=== PATIENT | male | born 1965 ===

== ENCOUNTER 2020-10-08 12:25 | Emergency (ER) | payer SELFPAY ==
[2020-10-08] MEDS ORDERED: Lactated Ringers 1,000 ML IV ONE ×2 (13:18→14:22)
[2020-10-08] MEDS ORDERED: Ketorolac 30 MG/ML SDV IVPUSH ONE (13:18)
[2020-10-08] MEDS ORDERED: Ondansetron 4 MG/2 ML SDV IV ONE (13:18)
[2020-10-08] MEDS ORDERED: Sodium Chloride 0.9% 10 ML Syringe FLUSH PRN (13:18)
[2020-10-08] MEDS ORDERED: Dicyclomine 20 MG/2 ML SDV IM ONE (13:19)
[2020-10-08 13:23] LABS: ANION GAP 16.7 mEq/L (7-13); CHLORIDE,CL 103 mmol/L (98-107); SODIUM,NA 142 mmol/L (136-145)
--- NOTE | 2020-10-08 13:24 | EDM.PDOC ---
ED HPI GENERAL MEDICAL PROBLEM - General Chief Complaint: Gastrointestinal Problem Stated Complaint: VOMITING Time Seen by Provider: 10/08/20 13:10 Source of Information: Reports: Patient History Limitations: Reports: No Limitations - History of Present Illness INITIAL COMMENTS - FREE TEXT/NARRATIVE: Patient comes emergency department today with complaints of nausea vomiting di arrhea and abdominal cramping. The patient is from [facility]. He is here fishing. Last night he ate a salad and [employer]. Approximately 2 hours later he started vomiting and having abdominal cramping and diarrhea. This is continued throughout the day. He has vomited about 12 times. He has had multiple bouts of diarrhea as well. He has had no recent antibiotics. No recent procedures. Complains of chills but no fever. He has generalized abdominal pain and cramping. He has no hematuria dysuria or urinary frequency. No weakness dizziness lightheadedness. Abdominal Pain Score (Numeric/FACES): 10 - Related Data Allergies Allergy/AdvReac Type Severity Reaction Status Date / Time No Known Allergies Allergy Verified 10/08/20 13:00 Home Meds: Home Meds Omeprazole 20 mg PO DAILY 10/08/20 [History] Temazepam [Restoril] 30 mg PO DAILY 10/08/20 [History] Topiramate 50 mg PO BID 10/08/20 [History] Past Medical History Gastrointestinal History: Reports: GERD Psychiatric History: Reports: Anxiety Social & Family History - Tobacco Use Tobacco Use Status *Q: Unknown Ever Used Tobacco - Caffeine Use Caffeine Use: Reports: None - Recreational Drug Use Recreational Drug Use: No ED ROS GENERAL - Review of Systems Review Of Systems: Comprehensive ROS is negative, except as noted in HPI. ED EXAM, GI/ABD - Physical Exam Exam: See Below Text/Narrative:: From the beginning of the exam the patient is quite rude and really gives little information. Exam Limited By: No Limitations General Appearance: Alert, WD/WN, No Apparent Distress Eyes: Bilateral: EOMI Ears: Normal External Exam Nose: Normal Inspection Throat/Mouth: Normal Inspection Head: Atraumatic, Normocephalic Neck: Normal Inspection, Supple, Non-Tender Respiratory/Chest: No Respiratory Distress, Lungs Clear, Normal Breath Sounds, No Accessory Muscle Use, Chest Non-Tender Cardiovascular: Normal Peripheral Pulses, Regular Rate, Rhythm GI/Abdominal Exam: Normal Bowel Sounds, Soft, Tender (generlaized tenderness). No: Guarding, Rigid, Rebound (Male) Exam: Deferred Rectal (Males) Exam: Deferred Back Exam: Normal Inspection Extremities: Normal Inspection, Normal Range of Motion, No Pedal Edema, Normal Capillary Refill Neurological: Alert, Oriented, CN II-XII Intact, Normal Cognition, No Motor/Sensory Deficits Psychiatric: Normal Affect, Normal Mood Skin Exam: Warm, Dry, Intact, Normal Color, No Rash Lymphatic: No Adenopathy Course - Vital Signs Last Recorded V/S: Last Vital Signs Temp 98.2 F 10/08/20 12:56 Pulse 60 10/08/20 12:56 Resp 14 10/08/20 12:56 BP 138/75 10/08/20 12:56 Pulse Ox 100 10/08/20 12:56 - Orders/Labs/Meds Orders: Active Orders 24 hr Category Date Time Status UA RFX DALTON AND CULT IF INDIC [URIN] Stat Lab 10/08/20 13:18 Ordered Peripheral IV Insertion Adult [OM.PC] Stat Oth 10/08/20 13:18 Ordered Labs: Laboratory Tests 10/08/20 10/08/20 10/08/20 Range/Units 12:50 12:50 12:50 WBC 11.3 H (5.0-10.0) 10^3/uL RBC 4.97 (4.6-6.2) 10^6/uL Hgb 16.0 (14.0-18.0) g/dL Hct 45.9 (40.0-54.0) % MCV 92.4 (80-100) fL MCH 32.2 (27.0-34.0) pg MCHC 34.9 (33.0-35.0) g/dL Plt Count 209 (150-450) 10^3/uL Neut % (Auto) 91.1 H (42.2-75.2) % Lymph % (Auto) 6.4 L (20.5-50.1) % [place] % (Auto) 2.2 (2-8) % Eos % (Auto) 0.1 L (1.0-3.0) % Baso % (Auto) 0.2 (0.0-1.0) % Sodium 142 (136-145) mmol/L Potassium 3.7 (3.5-5.1) mmol/L Chloride 103 (98-107) mmol/L Carbon Dioxide 26 (21-32) mmol/L Anion Gap 16.7 H (7-13) mEq/L BUN 12 (7-18) mg/dL Creatinine 0.96 (0.70-1.30) mg/dL Est Cr Clr Drug Dosing TNP Estimated GFR (MDRD) > 60 BUN/Creatinine Ratio 12.5 (No establ ref range) Glucose 161 H (70-99) mg/dL Lactic Acid 1.2 (0.4-2.0) mmol/L Calcium 9.3 (8.5-10.1) mg/dL Total Bilirubin 0.7 (0.2-1.0) mg/dL AST 27 (15-37) U/L ALT 45 (16-63) U/L Alkaline Phosphatase 113 (46-116) U/L Total Protein 7.4 (6.4-8.2) g/dL Albumin 3.9 (3.4-5.0) g/dL Globulin 3.5 Albumin/Globulin Ratio 1.1 Amylase 82 (25-115) U/L Lipase 121 (73-393) U/L Meds: Medications Discontinued Medications Generic Name Dose Route Start Last Admin Trade Name Freq PRN Reason Stop Dose Admin Dicyclomine HCl 20 mg 10/08/20 13:19 10/08/20 13:35 Dicyclomine 20 Mg/2 Ml Sdv IM 10/08/20 13:20 20 mg ONETIME ONE Administration Lactated Ringer's 1,000 mls @ 1,000 mls/hr 10/08/20 13:18 10/08/20 13:35 Ringers, Lactated IV 10/08/20 14:17 1,000 mls/hr .BOLUS ONE Administration Lactated Ringer's 1,000 mls @ 1,000 mls/hr 10/08/20 14:22 10/08/20 14:50 Ringers, Lactated IV 10/08/20 15:21 Not Given .BOLUS ONE Ketorolac Tromethamine 30 mg 10/08/20 13:18 10/08/20 13:36 Ketorolac 30 Mg/Ml Sdv IVPUSH 10/08/20 13:19 30 mg ONETIME ONE Administration Ondansetron HCl 4 mg 10/08/20 13:18 10/08/20 13:36 Ondansetron 4 Mg/2 Ml Sdv IV 10/08/20 13:19 4 mg ONETIME ONE Administration Sodium Chloride 10 ml 10/08/20 13:18 10/08/20 14:12 Sodium Chloride 0.9% 10 Ml Syringe FLUSH 10 ml ASDIRECTED PRN Administration Keep Vein Open - Re-Assessments/Exams Free Text/Narrative Re-Assessment/Exam: 10/08/20 13:24 IV established. LR 1 liter wide open. Zofran 4mg IVP Ketorolac 30mg IVP Bentyl 20mg IM Labs drawn. Patient's laboratory evaluation is rather unremarkable. After the above therapy is nausea is much is proved as well as his abdominal pain. He still has some cramping but it is quite a bit better. He is unable to give a urine sample at this time. A second liter of LR was ordered. Shortly thereafter the patient removed his IV and left the emergency department. I was unable to give him AMA or discharge instructions as he had eloped from the emergency department on his own. Departure - Departure Time of Disposition: 14:45 Disposition: Eloped 07 Clinical Impression: Gastroenteritis - Discharge Information Referrals: PCP,None [Primary Care Provider] - Forms: ED Department Discharge Additional Instructions: Unable to complete discharge or AMA instructions as the patient eloped from the ED. Sepsis Event Note (ED) - Evaluation Sepsis Screening Result: No Definite Risk - Focused Exam Vital Signs: Vital Signs Temp Pulse Resp BP Pulse Ox 10/08/20 12:56 98.2 F 60 14 138/75 100 - My Orders Last 24 Hours: My Active Orders 10/08/20 13:18 UA RFX DALTON AND CULT IF INDIC [URIN] Stat Peripheral IV Insertion Adult [OM.PC] Stat - Assessment/Plan Last 24 Hours: My Active Orders 10/08/20 13:18 UA RFX DALTON AND CULT IF INDIC [URIN] Stat Peripheral IV Insertion Adult [OM.PC] Stat
== END 2020-10-08 14:50 | disposition left against medical advice (07) ==
LOC: DL.ED 12:25
DX: K52.9 Noninfective gastroenteritis and colitis, unspecified (principal); K21.9 Gastro-esophageal reflux disease without esophagitis; Z79.899 Other long term (current) drug therapy
CPT/HCPCS: 36415; 80053; 82150; 83605; 83690; 85025; 96372; 96374; 96375; 99283; 99284; J0500; J1885; J2405; J7120